=== PATIENT | female | born 1975 | race Caucasian/White ===

== ENCOUNTER 2016-12-24 14:48 | Outpatient (CLI) | payer OTHER ==
--- NOTE | 2016-12-24 16:47 | MRI Preliminary Report ---
Exam: MRI Lumbar Spine W/O IMPRESSION: No acute abnormality. No stenosis. Minimal degenerative changes. [facility] SITE ID: [id number]
--- NOTE | 2016-12-24 16:54 | MRI Report ---
EXAM: MRI LUMBAR SPINE WITHOUT CONTRAST EXAM DATE: 12/24/2016 03:48 PM. CLINICAL HISTORY: Low back pain with right-sided sciatica. COMPARISON: None. TECHNIQUE: Multiplanar, multisequence T1-weighted and fluid-sensitive sequences of the lumbar spine f rom T12 to S1 without contrast. Other: None. FINDINGS: Spinal Cord: The conus terminates at L1-L2. No signal abnormality in the visualized spinal cord. Alignment: Normal. No scoliosis or spondylolisthesis. Bone Marrow: Five [id number] lumbar vertebral bodies are assumed. Minimal degenerative marrow ed yan at the anterior inferior corner of the L2 vertebral body. Small chronic incidental Schmorl's node s at the T11-T12 and T12-L1 levels. Disk Levels/Facets: T12-L1: Unremarkable. L1-L2: Unremarkable. L2-L3: Minimal degenerative disk disease. Shallow broad-based bulge. No focal disk herniation or sten osis. Minimal facet arthropathy. L3-L4: Minimal degenerative disk disease and facet arthropathy. No focal disk herniation or stenosis. Minimal broad-based bulge. L4-L5: No focal disk herniation, stenosis or disk space narrowing. Minimal facet arthropathy. L5-S1: Minimal posterior disk bulge without significant mass effect. No significant disk space narrow ing or stenosis. No nerve root impingement or significant facet arthropathy. Musculature: Normal. No edema or fatty atrophy. Other: None. IMPRESSION: No acute abnormality. No stenosis. Minimal degenerative changes. Comment: The following findings are so common in adults without low back pain that while we report th eir presence, they must be interpreted with caution and in the context of the clinical situation. (Re debi Klein et al, Spine 2001) Prevalence of findings in patients without low back pain: Disk degeneration (any evidence): 92% Disk desiccation/T2 signal loss: 83% Disk height loss: 56% Disk bulge: 64% Disk protrusion: 32% Annular tear/high intensity zone: 38% [facility] Referring Provider Line: [phone] SITE ID: [id number]
== END 2016-12-24 14:49 | disposition home or self-care (01) ==
LOC: DI 14:48
PROVIDERS: ATTEND Chiropractor Neurology
DX: M54.41 Lumbago with sciatica, right side (principal)
CPT/HCPCS: 72148